=== PATIENT | male | born 1960 | race Caucasian/White ===

== ENCOUNTER 2019-05-04 22:50 | Emergency (ER) | payer OTHER ==
[2019-05-04 22:56] VITALS: BP 154/80; PULSE 86; TEMP 98.4; BMI 35.5
--- NOTE | 2019-05-05 00:14 | PDOC ---
History of Present Illness - General Chief Complaint: Constipation Stated Complaint: CONSTIPATION History Source: Patient Exam Limitations: No Limitations - History of Present Illness Initial Comments: 05/05/19 00:03 Patient is 59 male with h/o asthma, DM, HLD, HTN c/o constipation x 1 week. He is feeling bloated and has epigastric pain, nausea, no vomiting. States he used MOM yesterday and this morning and did have a BM, small amount and he was straining to have BM. Patient states he still feels bloated. Epigastric pain feels like a tightness 04/26. PMD: Dr. Ramey PMHX: as above PSCHX: occ etoh, neg cig, neg drug ALL: NKDA GENERAL/CONSTITUTIONAL: No fever or chills. No weakness. No weight change. HEAD, EYES, EARS, NOSE AND THROAT: No change in vision. No ear pain or discharge. No sore throat. CARDIOVASCULAR: No chest pain or shortness of breath. RESPIRATORY: No cough, wheezing, or hemoptysis. GASTROINTESTINAL: (+) nausea, (-) vomiting, diarrhea, (+) constipation. No rectal bleeding. GENITOURINARY: No dysuria, frequency, or change in urination. MUSCULOSKELETAL: No joint or muscle swelling or pain. No neck or back pain. SKIN AND BREASTS: No rash or easy bruising. NEUROLOGIC: No headache, vertigo, loss of consciousness, or loss of sensation. PSYCHIATRIC: No depression or anxiety. ENDOCRINE: No increased thirst. No abnormal weight change. HEMATOLOGIC/LYMPHATIC: No anemia, easy bleeding, or history of blood clots. ALLERGIC/IMMUNOLOGIC: No hives or skin allergy. No latex allergy. GENERAL: The patient is awake, alert, and fully oriented, in no acute distress. HEAD: Normal with no signs of trauma. EYES: Pupils equal, round and reactive to light, extraocular movements intact, sclera anicteric, conjunctiva clear. ENT: Ears normal, nares patent, oropharynx clear without exudates. Moist mucous membranes. NECK: Normal range of motion, supple without lymphadenopathy, JVD, or masses. LUNGS: Breath sounds equal, clear to auscultation bilaterally. No wheezes, and no crackles. HEART: Regular rate and rhythm, normal S1 and S2 without murmur, rub. ABDOMEN: Soft, (+) mild tenderness left sided abd, normoactive bowel sounds. No guarding, no rebound. No masses. RECTAL: no stool in the vault EXTREMITIES: Normal range of motion, no edema. No clubbing or cyanosis. No cords, erythema, or tenderness. NEUROLOGICAL: Cranial nerves II through XII grossly intact. Normal speech, normal gait. PSYCH: Normal mood, normal affect. SKIN: Warm, Dry, normal turgor, no rashes or lesions noted. Past History - Past Medical History Allergies/Adverse Reactions: Allergies Allergy/AdvReac Type Severity Reaction Status Date / Time No Known Allergies Allergy Verified 05/04/19 22:52 Asthma: Yes COPD: No Diabetes: Yes HTN: Yes Hypercholesterolemia: Yes - Suicide/Smoking/Psychosocial Hx Smoking History: Never smoked Hx Alcohol Use: Yes Drug/Substance Use Hx: No *Physical Exam - Vital Signs Last Vital Signs Temp Pulse Resp BP Pulse Ox 98.4 F 86 18 154/80 100 05/04/19 22:52 05/04/19 22:52 05/04/19 22:52 05/04/19 22:52 05/04/19 22:52 Medical Decision Making - Medical Decision Making 05/05/19 00:03 Patient is 59 male with h/o asthma, DM, HLD, HTN c/o constipation x 1 week. He is feeling bloated and has epigastric pain, nausea, no vomiting. States he used MOM yesterday and this morning and did have a BM, small amount and he was straining to have BM. Patient states he still feels bloated. Epigastric pain feels like a tightness 8/10. Symptoms consitent with constipation. xray flat and upright r/o obstruction 05/05/19 00:53 xray shows large amount of stool in the colon and in the rectum. will give lactulose and discharge. I discussed the physical exam findings, ancillary test results and final diagnoses with the patient. I answered all of the patient's questions. The patient was satisfied with the care received and felt comfortable with the discharge plan and treatment plan. The Patient agrees to follow up with the primary care physician within 24-72 hours. *DC/Admit/Observation/Transfer Diagnosis at time of Disposition: Constipation Qualifiers: Constipation type: unspecified constipation type Qualified Code(s): K59.00 - Constipation, unspecified - Discharge Dispostion Disposition: HOME Condition at time of disposition: Stable - Referrals Referrals: Leonora Ramey MD [Primary Care Provider] - - Patient Instructions Printed Discharge Instructions: DI for Constipation Additional Instructions: Your Discharge Instructions: You must call primary care physician within 24 hours to arrange follow-up. Return to the Emergency Department with any new, persistent or worsening symptoms, for fever, chills, SOB, dizziness or any other concerning changes that may occur. He needs to increase fiber and water in your diet. If the laxative does not give you symptomatic relief you should return to the emergency room for further evaluation. - Post Discharge Activity
[2019-05-05] MEDS ORDERED: LACTULOSE 20 GM/30 ML UDC (FOR ORAL USE ONLY) PO ONE (00:56)
[2019-05-05] MEDS ORDERED: LACTULOSE 20 GM/30 ML UDC (FOR ORAL USE ONLY) ONE (01:02)
== END 2019-05-05 01:06 | disposition home or self-care (01) ==
LOC: JER 22:50
DX: K59.00 Constipation, unspecified (principal); I10 Essential (primary) hypertension; E78.5 Hyperlipidemia, unspecified; E11.9 Type 2 diabetes mellitus without complications; J45.909 Unspecified asthma, uncomplicated
CPT/HCPCS: 74019-TC-FY; 99282-25

== ENCOUNTER 2023-09-01 14:18 | Emergency (ER) | payer OTHER ==
[2023-09-01 14:46] VITALS: BP 161/77; PULSE 91; RESP 18; TEMP 98.9; BMI 33.9
[2023-09-01] MEDS ORDERED: ACETAMINOPHEN 500 MG TABLET (FP) PO ONE (16:36)
[2023-09-01] MEDS ORDERED: ACETAMINOPHEN 500 MG TABLET (FP) ONE (16:47)
== END 2023-09-01 19:02 | disposition home or self-care (01) ==
LOC: JER 14:18 → JERFT 14:18
DX: J10.1 Influenza due to other identified influenza virus with other respiratory manifestations (principal); Z20.822 Contact with and (suspected) exposure to COVID-19
CPT/HCPCS: 0241U-QW; 71046-TC-FY; 99284-25

== ENCOUNTER 2024-04-27 13:48 | Emergency (ER) | payer OTHER ==
[2024-04-27 13:54] VITALS: BP 169/85; PULSE 85; RESP 18; TEMP 99.9; BMI 34.3
[2024-04-27] MEDS ORDERED: valACYclovir HCL 500 MG TABLET (FP) ONE (14:18)
[2024-04-27] MEDS ORDERED: ACETAMINOPHEN 500 MG TABLET (FP) ONE (14:18)
[2024-04-27] MEDS: ACETAMINOPHEN 500 MG TABLET (FP) PO ONE (14:23)
[2024-04-27] MEDS: valACYclovir HCL 500 MG TABLET (FP) PO ONE (14:23)
== END 2024-04-27 14:52 | disposition home or self-care (01) ==
LOC: JERFT 13:48
DX: B02.9 Zoster without complications (principal)
CPT/HCPCS: 99283-25